=== PATIENT | male | born 1965 | race Caucasian/White ===

== ENCOUNTER → 2024-12-01 16:28 | Outpatient (REF) | payer OTHER, SELFPAY ==
[2024-12-01 17:23] LABS: % Basophils 0.7 % (0-2); % Eosinophils 4.1 % (0-6); % Immature Granulocytes 0.1 % (0-0.5); % Lymphocytes 37.1 % (20.5-51.1); % Monocytes 7.9 % (1.7-9.3); % Neutrophils 50.1 % (42.2-75.2); Absolute Basophils 0.1 10^3/uL (0-0.2); Absolute Eosinophils 0.3 10^3/uL (0-0.7); Absolute Lymphocytes 2.8 10^3/uL (1.2-3.4); Absolute Monocytes 0.6 10^3/uL (0.1-0.6); Absolute Neutrophils 3.8 10^3/uL (1.4-6.5); Hematocrit 41.8 % (39.0-52.0); Hemoglobin 14.3 g/dL (13.0-18.0); Mean Corp Hgb Conc. 34.2 g/dL (33.0-37.0); Mean Corpuscular Hgb 30.1 pg (27.0-31.0); Mean Platelet Volume 10.7 fL (7.4-10.4); Nucleated Red Blood Cells % 0 % (-); Platelet Count 188 10^3/uL (130-400); Red Blood Cell Count 4.75 10^6/uL (4.70-6.10); Red Cell Dist. Width 12.8 % (11.5-14.5); White Blood Cell Count 7.6 10^3/uL (4.8-10.8)
[2024-12-01 17:44] LABS: Blood Urea Nitrogen 27 mg/dl (9-20); Calcium 9.3 mg/dl (8.4-10.2); Carbon Dioxide 29 mmol/L (22-30); Chloride 103 mmol/L (98-107); Glucose 85 mg/dl (70-99); Potassium 3.5 mmol/L (3.5-5.1); Sodium 137 mmol/L (135-145); eGFR > 60.00
== END ==
LOC: REG 16:28
PROVIDERS: ATTENDING PHYSICIAN Orthopaedic Surgery; FAMILY PHYSICIAN Nurse Practitioner Gerontology
DX: Z01.818 Encounter for other preprocedural examination (principal)
CPT/HCPCS: 36415; 80048; 85025

== ENCOUNTER 2024-12-30 00:26 | Emergency (ER) | payer OTHER, SELFPAY ==
[2024-12-30 00:58] VITALS: BMI 36.5
[2024-12-30 01:08] LABS: Hematocrit 37.7 % (39.0-52.0); Hemoglobin 13.1 g/dL (13.0-18.0); Mean Corp Hgb Conc. 34.7 g/dL (33.0-37.0); Mean Corpuscular Volume 87.9 fL (80.0-94.0); Nucleated Red Blood Cells % 0 % (-); Platelet Count 218 10^3/uL (130-400); Red Cell Dist. Width 13.0 % (11.5-14.5)
[2024-12-30 01:25] LABS: ALT (SGPT) 26 U/L (0-50); AST (SGOT) 28 U/L (17-59); Albumin 3.8 g/dl (3.5-5.0); Alkaline Phosphatase 69 U/L (38-126); Blood Urea Nitrogen 40 mg/dl (9-20); Calcium 9.4 mg/dl (8.4-10.2); Carbon Dioxide 30 mmol/L (22-30); Chloride 102 mmol/L (98-107); Estimated Creatinine Clearance 103 ml/min; Glucose 113 mg/dl (70-99); Magnesium 2.0 mg/dl (1.6-2.3); Potassium 3.9 mmol/L (3.5-5.1); Sodium 138 mmol/L (135-145); Total Protein 6.3 g/dl (6.3-8.2); eGFR > 60.00
[2024-12-30 01:36] LABS: Troponin I < 0.012 ng/ml
--- NOTE | 2024-12-30 02:43 | ED.GENMED ---
History of Present Illness
<Joel Helton, DO - Last Filed: 12/31/24 23:55>
General
Chief Complaint: Breathing Problem
Source: patient
Time Seen by Provider: 12/30/24 00:56
History of Present Illness
History of Present Illness:
Note:
CHIEF COMPLAINT(S)
Shortness of breath following recent right knee replacement surgery.
HISTORY OF PRESENT ILLNESS
The patient is a 59-year-old male with a significant past medical history of clotting disorders and high blood pressure, presenting with shortness of breath. Three days ago, the patient underwent a right knee replacement surgery and was taken off
apixaban (Eliquis) for the procedure. Shortly after the surgery, the patient started experiencing symptoms reminiscent of prior pulmonary embolism episodes he has experienced, including intense shortness of breath at night and gasping for air. The
patient noted that these gasping episodes occurred frequently and that he was unable to breathe for approximately 10 seconds at a time, similar to previous occurrences. The symptoms have progressively worsened. There was also mention of 'reverse
hiccup' episodes.
Due to the patient�s history of a clotting disorder and familial tendency for similar conditions�his identical twin and older brother have reportedly experienced similar clots in the lungs�he is concerned about blood clots as a potential cause. The
patient has a known genetic predisposition for clotting (Factor V Leiden mutation). He has been prescribed apixaban indefinitely to manage this. However, the recent surgery necessitated a temporary cessation which may have contributed to his current
condition. Additionally, he mentioned the presence of bruising which might indicate underlying clotting activity.
The patient also has an aortic aneurysm which has been monitored for approximately 45 years and has not shown significant growth to warrant surgical intervention. It was last measured at 3.8 cm, below the typical operative threshold.
The patient has recently been focusing on weight loss and reports control of high blood pressure and high cholesterol with medication.
ALLERGIES
The patient reports an allergy to penicillin.
CHRONIC MEDICAL CONDITIONS SIGNIFICANTLY AFFECTING CARE
1. Clotting disorder (Factor V Leiden mutation).
2. Hypertension, controlled with medication.
3. Hypercholesterolemia, controlled with atorvastatin.
4. Aortic aneurysm, monitored for stability.
MEDICATIONS
1. Apixaban (Eliquis) for clot prevention.
2. Atorvastatin for hypercholesterolemia.
3. Losartan for hypertension.
4. Chlorthalidone for hypertension.
5. Diltiazem for cardiovascular health.
REVIEW OF SYSTEMS
- Cardiovascular: History of clotting disorder. Familial history of similar conditions.
- Respiratory: Progressive shortness of breath, severe at night, with episodes of gasping for air.
- Gastrointestinal: History of occasional dark stools possibly due to pre-operative dietary changes and laxative use.
- Musculoskeletal: Recently underwent right knee replacement surgery.
PHYSICAL EXAM
General: Alert, no acute distress except for periods of dyspnea.
Skin: Scattered ecchymosis on the right lower extremity at various stages of healing from recent knee surgery.
Head: Normocephalic, atraumatic.
Neck: Supple, trachea midline.
Eye, Ears, Nose, Mouth, and Throat: Oral mucosa moist.
Cardiovascular: Normal peripheral perfusion, no edema noted.
Respiratory: Respirations are non-labored between episodes.
Gastrointestinal: Abdomen nondistended.
Musculoskeletal: Right lower extremity with intact wound bandage, no redness or drainage.
Neurological: Alert and oriented to person, place, and time, no focal neurological deficit observed.
Psychiatric: Cooperative, appropriate mood and affect.
PROBLEM LIST
Acute Problems:
1. Shortness of breath with suspected pulmonary embolism.
Chronic Problems:
1. Clotting disorder (Factor V Leiden mutation).
2. Hypertension.
3. Hypercholesterolemia.
4. Aortic aneurysm.
PLAN
1. Perform a computed tomography (CT) scan to evaluate for pulmonary embolism, lung pathology, and other potential contributory factors.
2. Conduct blood tests, including a hemoglobin check, to ensure no significant anemia post-surgery and assess clotting dynamics.
3. Restart and optimize the dosage of apixaban, as necessary, post-surgery to prevent further clotting events.
4. Monitor clinical status closely, and consider hospital admission if substantial clot burden or other complications are detected.
5. Follow-up on the status of the aortic aneurysm with relevant imaging and specialist consultation.
DIFFERENTIAL DIAGNOSIS
The Differential Diagnosis includes, in no particular order and is not limited to:
1. Pulmonary embolism
2. Pneumonia
3. Heart failure
4. Aortic aneurysm progression
5. Anemia
6. Respiratory infection
7. Cardiac arrhythmia
8. Aspiration or obstruction
9. Chronic obstructive pulmonary disease
10. Drug side effect or interaction
Disposition:
SUMMARY OF ENCOUNTER
The patient is a 59-year-old male with a history of Factor V Leiden and recent right knee replacement surgery, presenting with symptoms concerning for pulmonary embolism (PE) similar to previous episodes he has experienced. The patient is currently
not hypoxic, tachycardic, or tachypneic. He resumed his full dose of apixaban, 5 mg twice daily, post-surgery.
ASSESSMENT
The patients symptoms are suggestive of a pulmonary embolism, though he is stable without acute respiratory distress or hemodynamic compromise.
PLAN
A CT angiogram is pending to evaluate for pulmonary embolism. If a small, peripheral PE is diagnosed, outpatient management will be considered since the patient has restarted apixaban. Admission will be necessary if there is evidence of right
ventricular strain or a large burden of thrombus to allow for close monitoring.
INDEPENDENT REVIEW OF LABS AND INTERPRETATION OF TESTS
The complete blood count (CBC) and comprehensive metabolic panel (CMP) were reviewed and found to be within normal limits. Troponin levels were also reviewed and are negative.
MEDICATION RECONCILIATION
The patient is on apixaban 5 mg twice daily.
MEDICAL DECISION MAKING
- Number and Complexity of Problems Addressed: Chronic conditions affecting care include Factor V Leiden mutation and recent right knee replacement surgery. Differential diagnosis includes pulmonary embolism, heart failure, and pneumonia.
- Data:
- Category 1: A CT angiogram is pending to confirm the suspicion of pulmonary embolism.
- Category 2: N/A
- Category 3: Discussion of management with the patient based on the outcome of pending CT angiogram results.
- Risk: The current management with apixaban involves careful risk assessment. Consideration for admission will be applied if CT results show significant pulmonary embolism involvement.
DIAGNOSIS
Dyspnea.
Phy Exam
<Yehuda Chacon, DO - Last Filed: 12/30/24 04:02>
Physical Exam
Physical Exam:
.
Scores
<Yehuda Chacon, DO - Last Filed: 12/30/24 04:02>
Heart Failure Risk
Heart Failure Risk Score: Not Applicable
Course
<Joel Helton, DO - Last Filed: 12/31/24 23:55>
Orders/Labs/Results
Orders:
Orders
12/30/24 01:01
Complete Blood Count/With Diff Urgent
Comprehensive Metabolic Panel Urgent
Magnesium Urgent
Troponin I Urgent
12/30/24 01:16
CT Chest PE Study Urgent
Comment:
Reason For Exam: sob, h/o PE
12/30/24 02:45
Electrocardiogram (*1) Urgent
Reason for Study: Shortness of Breath
EKG- Treatment ONCE
Abnormal Lab Results
12/30/24
01:01
RBC 4.29 L 10^6/uL
(4.70-6.10)
Hct 37.7 L %
(39.0-52.0)
Abs Immat Gran (auto) 0.1 H 10^3/uL
(0-0.05)
Absolute Neuts (auto) 7.2 H 10^3/uL
(1.4-6.5)
Absolute Monos (auto) 0.9 H 10^3/uL
(0.1-0.6)
Immature Gran % 0.9 H %
(0-0.5)
Lymphocytes % 18.0 L %
(20.5-51.1)
BUN 40 H mg/dl
(9-20)
Glucose 113 H mg/dl
(70-99)
12/30/24 01:01
12/30/24 01:01
Vital Signs
Initial and Last Documented VS:
Initial Vital Signs
Temp Pulse Resp Pulse Ox
98.4 F 72 22 96
12/30/24 00:41 12/30/24 00:41 12/30/24 00:41 12/30/24 00:41
Last Documented Vital Signs
Temp Pulse Resp BP Pulse Ox
98.4 F 67 13 113/65 99
12/30/24 00:41 12/30/24 04:15 12/30/24 04:15 12/30/24 04:00 12/30/24 02:45
<Yehuda Chacon, DO - Last Filed: 12/30/24 04:02>
Orders/Labs/Results
Orders:
Orders
12/30/24 01:01
Complete Blood Count/With Diff Urgent
Comprehensive Metabolic Panel Urgent
Magnesium Urgent
Troponin I Urgent
12/30/24 01:16
CT Chest PE Study Urgent
Comment:
Reason For Exam: sob, h/o PE
12/30/24 02:45
Electrocardiogram (*1) Urgent
Reason for Study: Shortness of Breath
EKG- Treatment ONCE
Abnormal Lab Results
12/30/24
01:01
RBC 4.29 L 10^6/uL
(4.70-6.10)
Hct 37.7 L %
(39.0-52.0)
Abs Immat Gran (auto) 0.1 H 10^3/uL
(0-0.05)
Absolute Neuts (auto) 7.2 H 10^3/uL
(1.4-6.5)
Absolute Monos (auto) 0.9 H 10^3/uL
(0.1-0.6)
Immature Gran % 0.9 H %
(0-0.5)
Lymphocytes % 18.0 L %
(20.5-51.1)
BUN 40 H mg/dl
(9-20)
Glucose 113 H mg/dl
(70-99)
12/30/24 01:01
12/30/24 01:01
Vital Signs
Initial and Last Documented VS:
Initial Vital Signs
Temp Pulse Resp Pulse Ox
98.4 F 72 22 96
12/30/24 00:41 12/30/24 00:41 12/30/24 00:41 12/30/24 00:41
Last Documented Vital Signs
Temp Pulse Resp BP Pulse Ox
98.4 F 67 13 113/65 99
12/30/24 00:41 12/30/24 04:15 12/30/24 04:15 12/30/24 04:00 12/30/24 02:45
<Joel Helton, DO - Last Filed: 12/31/24 23:55>
*Pulse Oximetry
SaO2: 99
Oxygen Mode of Delivery: Room air
Patient hypoxic: no
*Materials Engineer Interpretation
Rate: normal
Interpretation: normal
Rhythm: sinus
*Critical Care Note
Total Time (30-74mins, 75-104mins- exclusive of procedures): Not Applicable
<Yehuda Chacon DO - Last Filed: 12/30/24 04:02>
*Radiology
Radiology exam reviewed: radiology read reviewed
<Yehuda Chacon DO - Last Filed: 12/30/24 04:02>
Update Note
Update Note:
Overnight ER attending signout pending CT of the chest, vision report noted patient updated
ED Attending Note
<Joel Helton, - Last Filed: 12/31/24 23:55>
-
Portions of this chart may have been created with voice recognition software.� Occasional wrong word or��sound alike� substitutions may have occurred due to the inherent limitations of voice recognition software.
Discharge Plan
Departure
Patient Disposition: Home (Routine Discharge)
Date of Disposition: 12/30/24
Time of Disposition: 04:00
Patient with high blood pressure during this ER visit?: No
Condition: Good
Discharge Problem:
Breath shortness
Instructions: Shortness of Breath (Dyspnea) (DC)
Referrals:
UNKNOWN - PT DOES,NOT KNOW [Family Provider]
Activity Restrictions/Additional Instructions:
Continue your anticoagulation as prescribed
Interventions
Interventions:
*Risk Screen - Suicide Last Done: 12/30/24 00:41
*General Assessment Last Done: 12/30/24 04:35
*Neglect/Abuse Screening Last Done: 12/30/24 00:44
*ED- Fall Risk Assessment Last Done: 12/30/24 04:35
*ED COVID-19 Vaccine History Last Done: 12/30/24 04:35
*Nursing Disposition Last Done: 12/30/24 04:35
ED- Cardiac Assessment Last Done: 12/30/24 01:07
ED- Pulmonary Assessment Last Done: 12/30/24 01:07
Discharge Date and Time
Discharge Date/Time: 12/30/24 04:37
Print Language: HAITIAN
[2024-12-30 02:45] VITALS: BP 117/79
[2024-12-30 03:00] VITALS: BP 121/83
[2024-12-30 04:00] VITALS: BP 113/65
== END 2024-12-30 04:37 | disposition home or self-care (01) ==
LOC: EMR 00:26
PROVIDERS: Emergency Medicine; EMERGENCY PHYSICIAN Emergency Medicine
DX: R06.02 Shortness of breath (principal); I10 Essential (primary) hypertension; E78.00 Pure hypercholesterolemia, unspecified; D68.51 Activated protein C resistance; I71.9 Aortic aneurysm of unspecified site, without rupture; Z96.651 Presence of right artificial knee joint; Z98.890 Other specified postprocedural states; Z86.711 Personal history of pulmonary embolism; Z79.01 Long term (current) use of anticoagulants; Z79.899 Other long term (current) drug therapy; Z88.0 Allergy status to penicillin; Z88.3 Allergy status to other anti-infective agents
CPT/HCPCS: 99284; 71275; 80053; 83735; 84484; 85025; 93005; Q9967

== ENCOUNTER → 2025-02-02 13:37 | Outpatient (REF) | payer OTHER, SELFPAY | LOC: RCS 13:37 | PROVIDERS: ATTENDING PHYSICIAN Nurse Practitioner; FAMILY PHYSICIAN Nurse Practitioner Gerontology | DX: I71.20 Thoracic aortic aneurysm, without rupture, unspecified (principal); I10 Essential (primary) hypertension | CPT/HCPCS: 93306 ==

== ENCOUNTER → 2025-06-01 18:40 | Outpatient (REF) | payer BC, SELFPAY | LOC: PAVMRI 18:40 | PROVIDERS: ATTENDING PHYSICIAN Nurse Practitioner Gerontology | DX: M54.12 Radiculopathy, cervical region (principal); R29.898 Other symptoms and signs involving the musculoskeletal system | CPT/HCPCS: 72141 ==